=== PATIENT | female | born 1960 | race Caucasian/White ===

== ENCOUNTER 2021-01-23 11:56 | Observation (INO) ==
[2021-01-23] MEDS ORDERED: Naloxone 0.4 MG/ML INJ IVP PRN (13:48)
[2021-01-23] MEDS ORDERED: Ondansetron ODT 4 MG TAB.RAPDIS SL PRN (13:48)
[2021-01-23] MEDS ORDERED: Acetaminophen 325 MG TABLET PO PRN (13:48)
[2021-01-23] MEDS ORDERED: Perflutren Lipid Microsphere 1.3 ML in 0.9 % Sodium Chloride 8.7 ML IVP PRN (14:48)
[2021-01-23] MEDS ORDERED: Levalbuterol 1 PUFF INHALER IH PRN (15:26)
[2021-01-23] MEDS: Apixaban 5 MG TABLET PO SCH (20:30)
[2021-01-23] MEDS: Budesonide/Formoterol 160/4.5 1 PUFF INH IH SCH (21:57)
[2021-01-24 03:07] LABS: Hematocrit 43.2 % (35.3-44.9); Hemoglobin 14.7 g/dL (11.5-15.4); Mean Corpuscular Hemoglobin 32.5 pg (28.0-33.3); Mean Corpuscular Volume 95.6 fL (83.0-100.0); Mean Platelet Volume 10.7 fL (9.4-12.4); Platelet Count 236 K/mcL (140-400); Red Blood Count 4.52 M/mcL (3.82-4.97); Red Cell Distribution Width 12.7 % (11.5-14.5); White Blood Count 8.8 K/mcL (4.3-11.1)
[2021-01-24 03:52] LABS: BUN/Creatinine Ratio 17 (6-26); Blood Urea Nitrogen 14 mg/dL (6-20); Calcium 8.6 mg/dL (8.6-10.3); Carbon Dioxide 30 mEq/L (23-29); Chloride 105 mEq/L (98-107); Glucose 116 mg/dL (70-105); Osmolality,Calculated 293 (280-300); Potassium 4.5 mEq/L (3.5-5.1); Sodium 141 mEq/L (136-145); eGFR For African Americans > 60 (> 60); eGFR For Non-African Americans > 60 (> 60)
[2021-01-24 06:38] VITALS: BP 154/83; PULSE 94; TEMP 98; O2SAT 95
[2021-01-24] MEDS ORDERED: Anastrozole 1 MG TABLET PO SCH (09:00)
[2021-01-24] MEDS ORDERED: atenoloL 25 MG TABLET PO SCH (09:00)
[2021-01-24] MEDS: Apixaban 5 MG TABLET PO SCH (09:35)
[2021-01-24] MEDS: Budesonide/Formoterol 160/4.5 1 PUFF INH IH SCH (09:54)
[2021-01-24 09:59] VITALS: RESP 18
[2021-01-24] MEDS ORDERED: Tiotropium 10 INH DOSE IH SCH (10:00)
== END 2021-01-24 17:51 | disposition home or self-care (01) ==
LOC: INPPIK
PROVIDERS: ADMIT Family Medicine; ATTEND Family Medicine